=== PATIENT | female | born 1980 | race Caucasian/White ===

== ENCOUNTER 2019-10-18 11:57 | Emergency (ER) | payer MEDICAID ==
[~2019-10-18] VITALS: Ht 175.3 cm; Wt 80.0 kg
[2019-10-18 12:04] VITALS: BP 181/70
[2019-10-18] MEDS ORDERED: SERT50TA PO (12:24)
[2019-10-18] MEDS ORDERED: BUDE10.22 INH ×2 (12:24→14:00)
[2019-10-18] MEDS ORDERED: SERT50TA10 PO (13:59)
== END 2019-10-18 14:12 | disposition home or self-care (01) ==
LOC: ER 11:58
DX: J45.909 Unspecified asthma, uncomplicated (principal); F32.9 Major depressive disorder, single episode, unspecified; Z79.899 Other long term (current) drug therapy
CPT/HCPCS: 99283

== ENCOUNTER 2019-12-02 19:00 | Emergency (ER) | payer MEDICAID ==
[~2019-12-02 19:00] MED LIST: BUDE10.22 INH; SERT50TA PO; SERT50TA10 PO
--- NOTE | 2019-12-02 19:37 | NUR ---
CALLED PT NAME, NOT IN LOBBY
--- NOTE | 2019-12-02 19:52 | NUR ---
CALLED PT NAME, NOT IN LOBBY AGAIN
[2019-12-03] MEDS ORDERED: SERT25TA PO (20:26)
[2019-12-03] MEDS ORDERED: OMEP40CA13 PO (20:26)
[2019-12-03] MEDS ORDERED: ALBU18HF2 INH (20:26)
[2019-12-03] MEDS ORDERED: LURA80TA3 PO (20:26)
[2019-12-03] MEDS ORDERED: BUDE10.22 INH (20:26)
== END 2019-12-02 20:09 | disposition left against medical advice (07) ==
LOC: ER 19:00
DX: Z00.00 Encounter for general adult medical examination without abnormal findings (principal); Z53.21 Procedure and treatment not carried out due to patient leaving prior to being seen by health care provider

== ENCOUNTER 2019-12-03 19:50 | Emergency (ER) | payer MEDICARE, MEDICAID ==
[~2019-12-03] VITALS: Ht 175.3 cm; Wt 160.0 kg
[2019-12-03 19:55] VITALS: BP 116/70
[2019-12-03] MEDS ORDERED: LURA80TA3 PO (20:26)
[2019-12-03] MEDS ORDERED: BUDE10.22 INH (20:26)
[2019-12-03] MEDS ORDERED: ALBU18HF2 INH (20:26)
[2019-12-03] MEDS ORDERED: OMEP40CA13 PO (20:26)
[2019-12-03] MEDS ORDERED: SERT25TA PO (20:26)
== END 2019-12-03 20:54 | disposition home or self-care (01) ==
LOC: ER 19:51
DX: K21.9 Gastro-esophageal reflux disease without esophagitis (principal); J44.9 Chronic obstructive pulmonary disease, unspecified; F41.9 Anxiety disorder, unspecified; F32.9 Major depressive disorder, single episode, unspecified; F17.200 Nicotine dependence, unspecified, uncomplicated; Z76.0 Encounter for issue of repeat prescription; Z79.899 Other long term (current) drug therapy
CPT/HCPCS: 99283

== ENCOUNTER 2020-01-02 17:45 | Emergency (ER) | payer MEDICARE, MEDICAID ==
[~2020-01-02] VITALS: Ht 175.3 cm; Wt 63.6 kg
[~2020-01-02 17:45] MED LIST changes: +ALBU18HF2 INH; +LURA80TA3 PO; +OMEP40CA13 PO; +SERT25TA PO
[2020-01-02 19:15] VITALS: BP 97/74
[2020-01-02] MEDS ORDERED: SERT25TA PO (19:27)
[2020-01-02] MEDS ORDERED: LURA80TA3 PO (19:27)
[2020-01-02] MEDS ORDERED: BUDE10.22 INH (19:27)
[2020-01-02] MEDS ORDERED: OMEP40CA13 PO (19:27)
== END 2020-01-02 19:52 | disposition home or self-care (01) ==
LOC: ER 17:46
DX: J44.9 Chronic obstructive pulmonary disease, unspecified (principal); K21.9 Gastro-esophageal reflux disease without esophagitis; F41.9 Anxiety disorder, unspecified; F32.9 Major depressive disorder, single episode, unspecified; F17.200 Nicotine dependence, unspecified, uncomplicated; Z76.0 Encounter for issue of repeat prescription
CPT/HCPCS: 99281

== ENCOUNTER 2020-01-25 23:27 | Emergency (ER) | payer MEDICARE, MEDICAID ==
[~2020-01-25] VITALS: Ht 175.3 cm; Wt 63.6 kg
[2020-01-25] MEDS ORDERED: SERT25TA PO (23:33)
[2020-01-25] MEDS ORDERED: BUDE10.22 INH (23:33)
[2020-01-25] MEDS ORDERED: LURA80TA3 PO (23:33)
[2020-01-25] MEDS ORDERED: OMEP40CA13 PO (23:33)
[2020-01-25 23:42] VITALS: BP 108/65
== END 2020-01-25 23:46 | disposition home or self-care (01) ==
LOC: ER 23:27
DX: F32.9 Major depressive disorder, single episode, unspecified (principal); Z76.0 Encounter for issue of repeat prescription; J44.9 Chronic obstructive pulmonary disease, unspecified; K21.9 Gastro-esophageal reflux disease without esophagitis; F41.9 Anxiety disorder, unspecified
CPT/HCPCS: 99281

== ENCOUNTER 2020-02-11 14:49 | Emergency (ER) | payer MEDICARE, MEDICAID ==
[~2020-02-11] VITALS: Ht 175.3 cm; Wt 63.6 kg
[2020-02-11 14:55] VITALS: BP 138/72
[2020-02-11] MEDS ORDERED: LURA80TA3 PO (14:59)
== END 2020-02-11 15:05 | disposition home or self-care (01) ==
LOC: ER 14:50
DX: F32.9 Major depressive disorder, single episode, unspecified (principal); Z76.0 Encounter for issue of repeat prescription; F41.9 Anxiety disorder, unspecified; K21.9 Gastro-esophageal reflux disease without esophagitis; J44.9 Chronic obstructive pulmonary disease, unspecified; Z79.899 Other long term (current) drug therapy
CPT/HCPCS: 99283

== ENCOUNTER 2020-03-07 11:55 | Emergency (ER) | payer MEDICAID, MEDICARE ==
[~2020-03-07] VITALS: Ht 175.3 cm; Wt 72.8 kg
[~2020-03-07 11:55] MED LIST changes: -OMEP40CA13 PO
[2020-03-07 12:09] VITALS: BP 117/69
[2020-03-07] MEDS ORDERED: BUDE10.22 INH (15:00)
[2020-03-07] MEDS ORDERED: LURA120T PO (15:00)
[2020-03-07] MEDS ORDERED: SERT25TA PO (15:00)
[2020-03-07] MEDS ORDERED: OMEP40CA13 PO (15:00)
[2020-03-07] MEDS ORDERED: ALBU8HFA PO (15:00)
== END 2020-03-07 15:39 | disposition home or self-care (01) ==
LOC: ER 11:56
DX: J44.9 Chronic obstructive pulmonary disease, unspecified (principal); K21.9 Gastro-esophageal reflux disease without esophagitis; F41.9 Anxiety disorder, unspecified; F32.9 Major depressive disorder, single episode, unspecified; F17.200 Nicotine dependence, unspecified, uncomplicated; Z76.0 Encounter for issue of repeat prescription; Z79.899 Other long term (current) drug therapy
CPT/HCPCS: 99281